=== PATIENT | male | born 1945 | race Caucasian/White ===

== ENCOUNTER → 2020-06-30 12:33 | Outpatient (CLI) | payer MEDICARE, MEDICAID, SELFPAY ==
[2020-06-30] MEDS: COVID-19 VACC, Ad26(JANSSEN)/PF 0.5 ML IM (12:54)
== END ==
PROVIDERS: PCP Physician Assistant; Visit Provider Internal Medicine
DX: Z23 Encounter for immunization (principal)
CPT/HCPCS: 0031A; 91303

== ENCOUNTER 2025-03-28 11:59 | Inpatient (IN) | payer MEDICARE, MEDICAID, SELFPAY ==
[2025-03-28] VITALS (10 sets, daily range): BP systolic 106–145; BP diastolic 66–89; PULSE 62–91; RESP 18–22; TEMP 36.4–37.4; O2SAT 95–99; BMI 18.3
--- NOTE | 2025-03-28 12:30 | EKG_ITS ---
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
--- NOTE | 2025-03-28 12:30 | DI.RAD.S_ITS ---
PROCEDURE: XR CHEST 1V INDICATIONS: Shortness of breath TECHNIQUE: One view of the chest was acquired. COMPARISON: [facility], , CHEST 2 VIEW, 04/09/2017, 9:12. FINDINGS: Surgical changes and devices: None. Lungs and pleura: Lungs are clear. No pleural effusions or pneumothorax. Lungs are hyperexpanded suggestive COPD. Mediastinum: Mediastinal contours appear normal. Heart size is normal. Bones and chest wall: No suspicious bony lesions. Overlying soft tissues appear unremarkable. IMPRESSION: No acute pulmonary process. Dictated by: Gaby Hanson M.D. on 03/28/2025 at 12:54 Approved by: Gaby Hanson M.D. on 03/28/2025 at 12:55
[2025-03-28] MEDS: SODIUM CHLORIDE 0.9% 1,000 ML 1000 ML IV (13:00)
[2025-03-28 13:02] LABS: Add Manual Diff / Slide Review NO; Hematocrit 42.8 % (41-53); Hemoglobin 14.7 g/dL (13.5-17.5); Lymphocytes Absolute Auto 700 /uL (1100-4500); Mean Corpuscular HGB Conc 34.4 % (30-36); Mean Corpuscular Hemoglobin 31.0 PG (26-34); Mean Corpuscular Volume 90.2 fL (80-100); Platelet Count 254 X10^3/uL (150-400)
[2025-03-28 13:09] LABS: INR 1.3 (0.9-1.3); Prothrombin Time 14.2 SECONDS (9.4-12.5)
[2025-03-28 13:12] LABS: COVID-19 CEPHEID 4-PLEX PCR Negative (Negative); Influenza A - CEPHEID Flu A NEGATIVE (NEGATIVE); Influenza B - CEPHEID Flu B NEGATIVE (NEGATIVE)
[2025-03-28 13:14] LABS: Alanine Aminotransferase 21 IU/L (<50); Albumin 4.4 g/dL (3.5-5.0); Albumin Globulin Ratio 1.0 (1.0-2.8); Alkaline Phosphatase 92 U/L (38-126); Blood Urea Nitrogen 37 mg/dL (9-20); Calcium 9.8 mg/dL (8.4-10.2); Carbon Dioxide 17 mmol/L (22-32); Chloride 103 mmol/L (98-107); Estimated Glomerular Filt Rate 38 mL/min (>60); Globulin 4.5 g/dL (1.7-4.1); Glucose 132 mg/dL (70-99); HEMOLYSIS < 15 (0-50); Potassium 4.4 mmol/L (3.4-5.1); Sodium 137 mmol/L (137-145); Total Protein 8.9 g/dL (6.3-8.2)
[2025-03-28 13:15] LABS: Lactate (Lactic Acid) 4.3 mmol/L (0.7-2.1)
[2025-03-28 13:26] LABS: NT-proBNP (BNP-Adult 18+) 1120 pg/mL (<450); Troponin I 0.033 ng/mL (0.01-0.034)
--- NOTE | 2025-03-28 13:56 | ED_ITS ---
HPI - Sepsis General Chief Complaint: Weakness Evaluation Sepsis Screen: No Definite Risk Sepsis Infection Criteria Present: None Exam Initial Vital Signs Initial Vital Signs: Vital Signs Temperature 97.6 F 03/28/25 12:22 Pulse Rate 91 H 03/28/25 12:22 Respiratory Rate 20 03/28/25 12:22 Blood Pressure 106/66 03/28/25 12:22 Pulse Oximetry 99 03/28/25 12:22 Oxygen Delivery Method Room Air 03/28/25 12:22 Course Orders Ordered: ED Orders 03/28/25 12:30 XR chest 1V Stat Covid-19 + FLU A/B + RSV - PCR Stat EKG-12 Lead Stat Measure peak expiratory flow STAT RT Consult Eval and Treat STAT 03/28/25 12:55 Complete Blood Count AUTO DIFF Stat Comprehensive Metabolic Panel Stat Lactate (Lactic Acid) Stat NT-proBNP (BNP-Adult 18+) Stat Prothrombin Time INR Stat Troponin I Stat 03/28/25 13:36 Blood Culture Stat 03/28/25 13:45 Respiratory Panel (Film Array) Stat Urinalysis and Microscopic Stat EKG-12 Lead Stat Venous Blood Gas STAT Sodium Chloride (Normal Saline 0.9%) 1,000 mls @ 1,000 mls/hr IV BOLUS ONE Stop: 03/28/25 14:04 Sodium Chloride (Normal Saline 0.9%) 1,837.05 mls @ 1,224.7 mls/hr 30 ml/kg infuse over 90 min (1837.05 ml) IV NOW ONE Stop: 03/28/25 15:14 Discontinued Medications Piperacillin Sod/Tazobactam (Sod 4.5 gm/ Sodium Chloride) 100 mls @ 200 mls/hr IV STAT ONE Stop: 03/28/25 13:46 Vancomycin HCl (Vancomycin Per Pharmacy) 1 request MISC STAT STA Stop: 03/28/25 13:46 Vital Signs Vital signs: Vital Signs - 8 hr 03/28/25 12:22 03/28/25 12:46 03/28/25 13:00 Temperature 97.6 F Pulse Rate 91 H 82 75 Respiratory Rate 20 22 Blood Pressure 106/66 Pulse Oximetry 99 98 97 Oxygen Delivery Method Room Air Room Air 03/28/25 13:00 Temperature Pulse Rate Respiratory Rate Blood Pressure 124/74 Pulse Oximetry Oxygen Delivery Method Sepsis Evaluation (ED) Triage Screening Sepsis Screen: No Definite Risk Level 1 - Infection Sepsis Infection Criteria Present: None MDM - Sepsis Lab Data 03/28/25 12:55 03/28/25 12:55 Labs: Lab Results 03/28/25 03/28/25 Range/Units 12:30 12:55 WBC 14.9 H (4.5-11.0) X10^3/uL RBC 4.75 (4.5-5.9) X10^6/uL Hgb 14.7 (13.5-17.5) g/dL Hct 42.8 (41-53) % MCV 90.2 (80-100) fL MCH 31.0 (26-34) PG MCHC 34.4 (30-36) % RDW 14.5 (11.6-14.8) % Plt Count 254 (150-400) X10^3/uL Neut % (Auto) 87.7 H (50-75) % Lymph % (Auto) 4.9 L (25-40) % [place] % (Auto) 7.0 (3-14) % Eos % (Auto) 0.0 L (2-4) % Baso % (Auto) 0.4 (0-2) % Neut # (Auto) 28738 H (1611-7322) /uL Lymph # (Auto) 700 L (2555-4872) /uL [place] # (Auto) 1000 H (0-900) /uL Eos # (Auto) 0 (0-450) /uL Baso # (Auto) 100 (0-100) /uL PT 14.2 H (9.4-12.5) SECONDS INR 1.3 (0.9-1.3) Sodium 137 (137-145) mmol/L Potassium 4.4 (3.4-5.1) mmol/L Chloride 103 (98-107) mmol/L Carbon Dioxide 17 L (22-32) mmol/L BUN 37 H (9-20) mg/dL Creatinine 1.79 H (0.66-1.25) mg/dL Estimated GFR 38 L (>60) mL/min BUN/Creatinine Ratio 20.7 (6-22) Glucose 132 H (70-99) mg/dL Lactate 4.3 H* (0.7-2.1) mmol/L Calcium 9.8 (8.4-10.2) mg/dL Total Bilirubin 2.5 H (0.2-1.3) mg/dL AST 28 (17-59) IU/L ALT 21 (<50) IU/L Alkaline Phosphatase 92 (38-126) U/L Troponin I 0.033 (0.01-0.034) ng/mL NT-Pro-B Natriuret Pep 1120 H (<450) pg/mL Total Protein 8.9 H (6.3-8.2) g/dL Albumin 4.4 (3.5-5.0) g/dL Globulin 4.5 H (1.7-4.1) g/dL Albumin/Globulin Ratio 1.0 (1.0-2.8) SARS-CoV-2 (PCR) Negative (Negative) Influenza A (RT-PCR) Flu a negative (NEGATIVE) Influenza B (RT-PCR) Flu b negative (NEGATIVE) RSV (PCR) Negative (Negative) Discharge Plan Departure Prescriptions: No Action erythromycin 5 mg/gram (0.5 %) ointment 1 applictn ophthalmic (eye) TID Qty: 1 0RF ibuprofen 200 MG tablet 400 mg PO PRN PRNQty: 0 Referrals: Lori Rivera PA-C [Primary Care Provider, Medical]
--- NOTE | 2025-03-28 13:58 | ED.WEAKNESS ---
HPI - Weakness General Chief complaint: Weakness Stated complaint: confused, sore throat, shaking, off balance Time Seen by Provider: 03/28/25 13:58 History of Present Illness HPI Narrative: This is a 80-year-old male presents to the emergency room with generalized weakness rigors confusion and lightheadedness that has been going on for the past couple of days. No cough shortness of breath or chest pain no dysuria pyuria or hematuria no abdominal pain. Patient did not take his temperature at home. Upon arrival the patient did have a heart rate that was in the sepsis range however the temperature and respiratory rate were not. Related Data Home Medications ?Medication ?Instructions ?Recorded ?Confirmed ibuprofen 200 mg tablet 400 mg PO PRN PRN ##0 01/04/17 06/18/18 Previous Rx's ?Medication ?Instructions ?Recorded erythromycin 5 mg/gram (0.5 %) eye 1 applictn ophthalmic (eye) TID #1 06/18/18 ointment g Allergies Allergy/AdvReac Type Severity Reaction Status Date / Time No Known Allergies Allergy Uncoded 08/01/17 12:46 Review of Systems Review of Systems Narrative: GENERAL: Denies chills, fatigue, malaise, fever, sweats. HEENT: Denies sinus pain, ear pain, sore throat, difficulty swallowing, dizziness. RESPIRATORY: Denies dyspnea, cough, wheezing, hemoptysis, sputum. CARDIOVASCULAR: Denies chest pain, palpitations, orthopnea, edema, GASTROINTESTINAL: Denies nausea, vomiting, abdominal pain, diarrhea, constipation, melena. : Denies dysuria, frequency, incontinence, hematuria, urinary retention. MUSCULOSKELETAL: denies weakness, joint pain, or bony pain SKIN: Denies rash, skin lesions, or other NEUROLOGIC: Denies weakness, headache, numbness, change in speech, confusion, seizures, incoordination. PSYCHIATRIC: No concerning psychosocial issues. 12 point review of systems is negative except for those stated above Exam Narrative Exam Narrative: GENERAL: [] year old patient appears stated age. Well-developed patient, in mild distress. HEAD: Atraumatic. Normocephalic. EYES: Pupils equal round and reactive. Extraocular motions intact. No scleral icterus. No injection or drainage. ENT: Nose without bleeding, purulent drainage. Throat without erythema, tonsillar hypertrophy or exudate. Airway patent. NECK: Trachea midline. Non tender CARDIOVASCULAR: Regular rate and rhythm without murmurs, gallops, or rubs. RESPIRATORY: Clear to auscultation. Breath sounds equal bilaterally. No wheezes, rales, or rhonchi. GASTROINTESTINAL: Abdomen soft, non-tender, nondistended. EXTREMITIES: No edema or joint tenderness. BACK: Nontender without deformity or crepitance. No flank tenderness. NEURO: AOx3. SKIN: No rash or erythema of visible areas Initial Vital Signs Initial Vital Signs: Vital Signs Temperature 97.6 F 03/28/25 12:22 Pulse Rate 91 H 03/28/25 12:22 Respiratory Rate 20 03/28/25 12:22 Blood Pressure 106/66 03/28/25 12:22 Pulse Oximetry 99 03/28/25 12:22 Oxygen Delivery Method Room Air 03/28/25 12:22 Course Orders Ordered: ED Orders 03/28/25 12:30 XR chest 1V Stat Covid-19 + FLU A/B + RSV - PCR Stat EKG-12 Lead Stat Measure peak expiratory flow STAT RT Consult Eval and Treat STAT 03/28/25 12:55 Complete Blood Count AUTO DIFF Stat Comprehensive Metabolic Panel Stat Lactate (Lactic Acid) Stat NT-proBNP (BNP-Adult 18+) Stat Prothrombin Time INR Stat Troponin I Stat 03/28/25 13:36 Blood Culture Stat 03/28/25 13:45 Respiratory Panel (Film Array) Stat Urinalysis and Microscopic Stat EKG-12 Lead Stat Venous Blood Gas STAT Sodium Chloride (Normal Saline 0.9%) 1,000 mls @ 1,000 mls/hr IV BOLUS ONE Stop: 03/28/25 14:04 Sodium Chloride (Normal Saline 0.9%) 1,837.05 mls @ 1,224.7 mls/hr 30 ml/kg infuse over 90 min (1837.05 ml) IV NOW ONE Stop: 03/28/25 15:14 Discontinued Medications Piperacillin Sod/Tazobactam (Sod 4.5 gm/ Sodium Chloride) 100 mls @ 200 mls/hr IV STAT ONE Stop: 03/28/25 13:46 Vancomycin HCl (Vancomycin Per Pharmacy) 1 request MISC STAT STA Stop: 03/28/25 13:46 Vital Signs Vital signs: Vital Signs - 8 hr 03/28/25 12:22 03/28/25 12:46 03/28/25 13:00 Temperature 97.6 F Pulse Rate 91 H 82 75 Respiratory Rate 20 22 Blood Pressure 106/66 Pulse Oximetry 99 98 97 Oxygen Delivery Method Room Air Room Air 03/28/25 13:00 Temperature Pulse Rate Respiratory Rate Blood Pressure 124/74 Pulse Oximetry Oxygen Delivery Method MDM - Weakness Lab Data 03/28/25 12:55 12 12:55 Labs: Lab Results 03/28/25 03/28/25 Range/Units 12:30 12:55 WBC 14.9 H (4.5-11.0) X10^3/uL RBC 4.75 (4.5-5.9) X10^6/uL Hgb 14.7 (13.5-17.5) g/dL Hct 42.8 (41-53) % MCV 90.2 (80-100) fL MCH 31.0 (26-34) PG MCHC 34.4 (30-36) % RDW 14.5 (11.6-14.8) % Plt Count 254 (150-400) X10^3/uL Neut % (Auto) 87.7 H (50-75) % Lymph % (Auto) 4.9 L (25-40) % [place] % (Auto) 7.0 (3-14) % Eos % (Auto) 0.0 L (2-4) % Baso % (Auto) 0.4 (0-2) % Neut # (Auto) 83259 H (6042-8752) /uL Lymph # (Auto) 700 L (2380-7593) /uL [place] # (Auto) 1000 H (0-900) /uL Eos # (Auto) 0 (0-450) /uL Baso # (Auto) 100 (0-100) /uL PT 14.2 H (9.4-12.5) SECONDS INR 1.3 (0.9-1.3) Sodium 137 (137-145) mmol/L Potassium 4.4 (3.4-5.1) mmol/L Chloride 103 (98-107) mmol/L Carbon Dioxide 17 L (22-32) mmol/L BUN 37 H (9-20) mg/dL Creatinine 1.79 H (0.66-1.25) mg/dL Estimated GFR 38 L (>60) mL/min BUN/Creatinine Ratio 20.7 (6-22) Glucose 132 H (70-99) mg/dL Lactate 4.3 H* (0.7-2.1) mmol/L Calcium 9.8 (8.4-10.2) mg/dL Total Bilirubin 2.5 H (0.2-1.3) mg/dL AST 28 (17-59) IU/L ALT 21 (<50) IU/L Alkaline Phosphatase 92 (38-126) U/L Troponin I 0.033 (0.01-0.034) ng/mL NT-Pro-B Natriuret Pep 1120 H (<450) pg/mL Total Protein 8.9 H (6.3-8.2) g/dL Albumin 4.4 (3.5-5.0) g/dL Globulin 4.5 H (1.7-4.1) g/dL Albumin/Globulin Ratio 1.0 (1.0-2.8) SARS-CoV-2 (PCR) Negative (Negative) Influenza A (RT-PCR) Flu a negative (NEGATIVE) Influenza B (RT-PCR) Flu b negative (NEGATIVE) RSV (PCR) Negative (Negative) MDM Narrative Medical decision making narrative: Patient had 12 lead EKG which revealed sinus rhythm at 74 beats per minute with left bundle branch block patient had chest x-ray read by the radiologist negative flu and COVID were negative CBC was remarkable for a white count 14.9 chemistry was remarkable for an elevated BUN creatinine ratio BNP was elevated at 11 20 troponin was negative at 0.03. Lactic acid was elevated at 4.3 T bilirubin was elevated 2.5. When we get back the WBC patient did meet sepsis criteria and sepsis alert was called. The patient did have a lactic acid greater than 4 so he meets severe sepsis criteria patient was given a bolus of 30 mL/kilograms of normal saline. Patient was also ordered IV vancomycin IV Zosyn. At this point we are still pending the urine and we have no clear source of the etiology of the sepsis. Patient was flu and COVID negative. The patient will need to be admitted for further evaluation and treatment. I I just speak with the hospitalist Dr. Hooker who agreed to admit the patient for observation for further evaluation and treatment. Differential diagnosis is pneumonia sepsis urosepsis. Discharge Plan Departure Patient Disposition: Admitted as Observation Clinical Impression: Sepsis
[2025-03-28 14:09] LABS: Base Excess VBG -2.2 mmol/L (0-4); HCO3 VBG 19 mmol/L (24-28); Oxygen Saturation VBG 47 % (70-75); PCO2 VBG 24.5 mmHg (45-50); PO2 VBG 23 mmHg (35-45); Total CO2 VBG 18 mmol/L (24-29); pH VBG 7.50 (7.33-7.43)
[2025-03-28] MEDS: PIPERACILLIN/TAZO 4.5 GM in SODIUM CHLORIDE 0.9% 100 ML IV (14:10)
[2025-03-28] MEDS: SODIUM CHLORIDE 0.9% 1,837.05 ML 1224.7 ML IV (14:19)
[2025-03-28 14:34] LABS: Reflexed Lactate in 2 Hours Y
--- NOTE | 2025-03-28 14:44 | P.HP_ITS ---
History of Present Illness History of Present Illness Date Patient Seen: 03/28/25 Time Patient Seen: 15:40 Chief complaint: confused, sore throat, shaking, off balance Narrative: ED note: This is a 80-year-old male presents to the emergency room with generalized weakness rigors confusion and lightheadedness that has been going on for the past couple of days. No cough shortness of breath or chest pain no dysuria pyuria or hematuria no abdominal pain. Patient did not take his temperature at home. Upon arrival the patient did have a heart rate that was in the sepsis range however the temperature and respiratory rate were not. S: He has been ill for 2 days with a cough and developed acute dyspnea and anxiety today. He also has had some diarrhea but denies any urinary symptoms such as hematuria or dysuria. He was had no fevers, or chills. Upon arrival in the ED, he had an elevated lactic acid and was given fluid bolus. 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 He denies history of asthma, or COPD. He does not smoke. He also denies abdominal pain, his bilirubin was mildly elevated with normal transaminases. He was not have a headache, or confusion. ROS: All else reviewed and otherwise unremarkable except as noted in the history and physical. O: VSS NAD, alert and oriented, fluent speech, calm. Normocephalic skull, EOMI, anicteric sclera, symmetric pupils. Oropharynx unremarkable, no droop. Neck supple, midline trachea, no adenopathy. Lungs clear, normal rate and effort. Heart regular, no murmur gallop or rub. Abdomen is soft, non distended and non tender. Extremities are free of edema. Skin is free of rash or lesions. Joints are not swollen or deformed. Judgment appears to be normal. IMAGING: CXR: Clear. A/P: 1. Sepsis, active. 2. Long Covid (per patient). Stable. 3. Possible pneumonia. 4. Lactic acidosis, active. PLAN: -continue IV antibiotics (for CAP). -continue IV fluids -monitor cultures Anticipate 1 night in the hospital, supports observation status. Full resuscitation. [facility] Social History household members: none Smoking Status: Current some day smoker alcohol intake: former Meds Home Medications and Allergies Home Medications ?Medication ?Instructions ?Recorded ?Confirmed ?Type ibuprofen 200 mg tablet 400 mg PO PRN PRN ##0 06/18/18 History erythromycin 5 mg/gram (0.5 %) eye 1 applictn ophthalm ic (eye) TID #1 06/18/18 Rx ointment g Allergies Allergy/AdvReac Type Severity Reaction Status Date / Time No Known Drug Allergies Allergy Verified 03/28/25 15:42 Exam Vital Signs (past 8 hours): - 03/28/25 12:22 03/28/25 12:46 03/28/25 13:00 Temperature 97.6 F Pulse Rate 91 H 82 75 Respiratory Rate 20 22 Blood Pressure 106/66 Pulse Oximetry 99 98 97 Oxygen Delivery Method Room Air Room Air 03/28/25 13:00 03/28/25 13:43 03/28/25 13:50 Temperature Pulse Rate 81 Respiratory Rate 20 Blood Pressure 124/74 125/89 Pulse Oximetry 98 Oxygen Delivery Method 03/28/25 13:50 03/28/25 14:00 03/28/25 14:00 Temperature Pulse Rate 85 75 Respiratory Rate 18 19 Blood Pressure 142/72 H Pulse Oximetry 97 98 Oxygen Delivery Method Oxygen Delivery Method Room Air Objective Labs 03/28/25 12:55 03/28/25 12:55 Labs: Laboratory Results - last 24 hr 03/28/25 03/28/25 03/28/25 12:30 12:55 14:07 WBC 14.9 H RBC 4.75 Hgb 14.7 Hct 42.8 MCV 90.2 MCH 31.0 MCHC 34.4 RDW 14.5 Plt Count 254 Neut % (Auto) 87.7 H Lymph % (Auto) 4.9 L [place] % (Auto) 7.0 Eos % (Auto) 0.0 L Baso % (Auto) 0.4 Neut # (Auto) 45944 H Lymph # (Auto) 700 L [place] # (Auto) 1000 H Eos # (Auto) 0 Baso # (Auto) 100 PT 14.2 H INR 1.3 VBG pH 7.50 H VBG pCO2 24.5 L VBG pO2 23 L VBG HCO3 19 L VBG Total CO2 18 L VBG O2 Saturation 47 L VBG Base Excess -2.2 L FiO2 % 21.0 % Sodium 137 Potassium 4.4 Chloride 103 Carbon Dioxide 17 L BUN 37 H Creatinine 1.79 H Estimated GFR 38 L BUN/Creatinine Ratio 20.7 Glucose 132 H Lactate 4.3 H* Calcium 9.8 Total Bilirubin 2.5 H AST 28 ALT 21 Alkaline Phosphatase 92 Troponin I 0.033 NT-Pro-B Natriuret Pep 1120 H Total Protein 8.9 H Albumin 4.4 Globulin 4.5 H Albumin/Globulin Ratio 1.0 SARS-CoV-2 (PCR) Negative Influenza A (RT-PCR) Flu a negative Influenza B (RT-PCR) Flu b negative RSV (PCR) Negative Assessment & Plan Time-Based Coding :: 35 min spent with patient and on the chart (including review of chart, obtaining history, exam, reviewing outside data, placing orders, documenting exam and treatment plan, and counseling patient) on 03/28. Quality MIPS - Admit The patient?s Advance Care plan is not present because I confirmed today that the patient does not wish or was not able to name a surrogate decision maker or provide an Advance Care Plan.: Yes MIPS - Meds 'Current medications' to include all prescriptions, [id number] products, herbals, cannabis/cannabidiol products, and vitamin/mineral/dietary (nutritional) supplements. I have utilized all available resources to obtain, update, or review the patient?s current medications. [If Yes, STOP here]: Yes
[2025-03-28 15:20] LABS: Lactate 2HR (Lactic Acid Rflx) 2.4 mmol/L (0.7-2.1)
[2025-03-28] MEDS: SODIUM CHLORIDE 0.9% 1,000 ML 100 ML IV (17:42)
[2025-03-28] MEDS: PIPERACILLIN/TAZO 3.375 GM in SODIUM CHLORIDE 0.9% 100 ML IV (17:43)
[2025-03-28 18:47] LABS: Lactate (Lactic Acid) 1.3 mmol/L (0.7-2.1)
[2025-03-28 21:05] LABS: Appearance Urine UA CLEAR; Bilirubin Urine UA NEGATIVE (NEGATIVE); Color Urine UA YELLOW; Glucose Urine UA NEGATIVE (Negative); Ketones Urine UA TRACE (NEGATIVE); Leukocyte Esterase Urine UA NEGATIVE (NEGATIVE); Nitrite Urine UA NEGATIVE (Negative); Occult Blood Urine UA TRACE-INTACT (Negative); Protein Urine UA 1+ (Negative); Specific Gravity Urine UA 1.025 (1.000-1.035); Urobilinogen Urine UA 1.0 E.U./dL (0.2); pH Urine UA 5.5 (4.5-8.0)
[2025-03-28 21:10] LABS: Culture Indicated Urine Cult Not Indicated
[2025-03-29] VITALS: BP 118/60; PULSE 69; RESP 16; TEMP 37.1; O2SAT 95
[2025-03-29] MEDS: PIPERACILLIN/TAZO 3.375 GM in SODIUM CHLORIDE 0.9% 100 ML IV ×4 (00:40→22:07)
[2025-03-29 03:10] VITALS: BP 139/78; PULSE 67; RESP 16; TEMP 36.8; O2SAT 96
[2025-03-29 06:11] LABS: Blood Urea Nitrogen 39 mg/dL (9-20); Calcium 8.4 mg/dL (8.4-10.2); Carbon Dioxide 19 mmol/L (22-32); Chloride 110 mmol/L (98-107); Estimated Glomerular Filt Rate 48 mL/min (>60); Glucose 91 mg/dL (70-99); HEMOLYSIS < 15 (0-50); Potassium 4.0 mmol/L (3.4-5.1); Sodium 136 mmol/L (137-145)
[2025-03-29 06:26] LABS: Add Manual Diff / Slide Review NO; Hematocrit 35.9 % (41-53); Hemoglobin 12.3 g/dL (13.5-17.5); Lymphocytes Absolute Auto 1000 /uL (1100-4500); Mean Corpuscular HGB Conc 34.4 % (30-36); Mean Corpuscular Hemoglobin 31.0 PG (26-34); Mean Corpuscular Volume 90.0 fL (80-100); Platelet Count 196 X10^3/uL (150-400)
[2025-03-29 06:56] LABS: Coronavirus NL 63 Not Detected (Not Detect); SARS- CoV-2 Not Detected (Not Detecte)
[2025-03-29] MEDS: SODIUM CHLORIDE 0.9% 1,000 ML 100 ML IV ×2 (08:00→20:49)
[2025-03-29 08:26] VITALS: BP 136/73; PULSE 60; RESP 22; TEMP 37.3; O2SAT 97
[2025-03-29 12:25] VITALS: BP 141/68; PULSE 54; RESP 18; TEMP 37.2; O2SAT 98
--- NOTE | 2025-03-29 15:04 | P.PN_ITS ---
Subjective Subjective Interval history: Summary: ED note: This is a 80-year-old male presents to the emergency room with generalized weakness rigors confusion and lightheadedness that has been going on for the past couple of days. No cough shortness of breath or chest pain no dysuria, pyuria, or hematuria no abdominal pain. Patient did not take his temperature at home. Upon arrival the patient did have a heart rate that was in the sepsis range however the temperature and respiratory rate were not. S: He is feeling better. He denies dyspnea or pain. No nausea. He is still feeling weak. IVF did make him feel better. O: T98.9, BP 141/68, HR 54, RR18. NAD, alert and oriented. Fluent speech. Lungs are clear, normal rate and effort. Heart is regular, no murmur gallop or rub. Abdomen is soft, non distended. Extremities are free of edema. IMAGING: CXR: Clear. A/P: 1. Sepsis, improved. 2. Long Covid (per patient). Stable. 3. Possible pneumonia. Continue Abx. 4. Lactic acidosis, resolved. 5. Weakness. PLAN: -continue IV antibiotics (for CAP). -continue IV fluids -monitor cultures Needs another night in the hospital for IVF and IV Abx. Full resuscitation. LE: 03/30. Exam Vital Signs (past 8 hours): - 03/29/25 08:26 03/29/25 12:25 Temperature 99.1 F 98.9 F Pulse Rate 60 54 L Respiratory Rate 22 18 Blood Pressure 136/73 141/68 H Pulse Oximetry 97 98 Oxygen Flow Rate 0 0 Oxygen Delivery Method Room Air Oxygen Flow Rate 0 Objective Labs 03/29/25 05:40 03/29/25 05:40 Labs: Laboratory Results - last 24 hr 03/28/25 03/28/25 03/28/25 14:48 18:27 20:30 WBC RBC Hgb Hct MCV MCH MCHC RDW Plt Count Neut % (Auto) Lymph % (Auto) [place] % (Auto) Eos % (Auto) Baso % (Auto) Neut # (Auto) Lymph # (Auto) [place] # (Auto) Eos # (Auto) Baso # (Auto) Sodium Potassium Chloride Carbon Dioxide BUN Creatinine Estimated GFR BUN/Creatinine Ratio Glucose Lactate 2.4 H 1.3 Calcium Urine Color Yellow Urine Appearance Clear Urine pH 5.5 Ur Specific [place] 1.025 Urine Protein 1+ H Urine Glucose (UA) Negative Urine Ketones Trace H Urine Occult Blood Trace-intact Urine Nitrate Negative Urine Bilirubin Negative Urine Urobilinogen 1.0 Ur Leukocyte Esterase Negative Urine RBC 0-1/hpf Urine WBC 0-1/hpf Ur Squamous Epith Cells None seen Urine Bacteria None seen Ur Culture Indicated? Cult not indicated Vol Urine Centrifuged 10ml (spun) Chlamy pneumoniae PCR Adenovirus (PCR) B. pertussis DNA (PCR) B.parapertussis DNA PCR Coronavirus OC43 (PCR) Coronavirus HKU1 (PCR) Coronavirus 229E (PCR) SARS-CoV-2 (PCR) Coronavirus NL63 (PCR) Human Metapneumovir PCR Influenza Type A (PCR) Influenza Type B (PCR) M. pneumoniae (PCR) Parainfluenza 1 (PCR) Parainfluenza 2 (PCR) Parainfluenza 3 (PCR) Parainfluenza 4 (PCR) RSV (PCR) Entero/Rhino (PCR) 03/29/25 03/29/25 05:30 05:40 WBC 8.0 RBC 3.98 L Hgb 12.3 L Hct 35.9 L MCV 90.0 MCH 31.0 MCHC 34.4 RDW 14.1 Plt Count 196 Neut % (Auto) 77.0 H Lymph % (Auto) 12.6 L [place] % (Auto) 8.6 Eos % (Auto) 1.1 L Baso % (Auto) 0.7 Neut # (Auto) 6200 Lymph # (Auto) 1000 L [place] # (Auto) 700 Eos # (Auto) 100 Baso # (Auto) 100 Sodium 136 L Potassium 4.0 Chloride 110 H Carbon Dioxide 19 L BUN 39 H Creatinine 1.49 H Estimated GFR 48 L BUN/Creatinine Ratio 26.2 H Glucose 91 Lactate Calcium 8.4 Urine Color Urine Appearance Urine pH Ur Specific [place] Urine Protein Urine Glucose (UA) Urine Ketones Urine Occult Blood Urine Nitrate Urine Bilirubin Urine Urobilinogen Ur Leukocyte Esterase Urine RBC Urine WBC Ur Squamous Epith Cells Urine Bacteria Ur Culture Indicated? Vol Urine Centrifuged Chlamy pneumoniae PCR Not detected Adenovirus (PCR) Not detected B. pertussis DNA (PCR) Not detected B.parapertussis DNA PCR Not detected Coronavirus OC43 (PCR) Not detected Coronavirus HKU1 (PCR) Not detected Coronavirus 229E (PCR) Not detected SARS-CoV-2 (PCR) Not detected Coronavirus NL63 (PCR) Not detected Human Metapneumovir PCR Not detected Influenza Type A (PCR) Not detected Influenza Type B (PCR) Not detected M. pneumoniae (PCR) Not detected Parainfluenza 1 (PCR) Not detected Parainfluenza 2 (PCR) Not detected Parainfluenza 3 (PCR) Not detected Parainfluenza 4 (PCR) Not detected RSV (PCR) Not detected Entero/Rhino (PCR) Not detected PFSH Social History household members: none Smoking Status: Current some day smoker alcohol intake: former Assessment & Plan Time-Based Coding :: [TOTAL MINUTES] spent with patient and on the chart (including review of chart, obtaining history, exam, reviewing outside data, placing orders, documenting exam and treatment plan, and counseling patient) on [DATE].
[2025-03-29 16:40] VITALS: BP 141/80; PULSE 64; RESP 20; TEMP 36.5; O2SAT 93
[2025-03-29 20:00] VITALS: BP 122/67; PULSE 62; RESP 20; TEMP 36.9; O2SAT 95
[2025-03-30] VITALS: BP 115/60; PULSE 68; RESP 16; TEMP 36.6; O2SAT 96
[2025-03-30 04:00] VITALS: BP 124/59; PULSE 80; RESP 16; TEMP 36.1; O2SAT 100
[2025-03-30 08:00] VITALS: BP 133/72; PULSE 56; RESP 19; TEMP 36.6; O2SAT 100
[2025-03-30] MEDS: PIPERACILLIN/TAZO 3.375 GM in SODIUM CHLORIDE 0.9% 100 ML IV (08:30)
[2025-03-30] MEDS: SODIUM CHLORIDE 0.9% 1,000 ML 100 ML IV (10:55)
--- NOTE | 2025-03-30 11:39 | PM.DS.1 ---
History of Present Illness History of Present Illness Chief complaint: confused, sore throat, shaking, off balance Narrative: ED note: This is a 80-year-old male presents to the emergency room with generalized weakness rigors confusion and lightheadedness that has been going on for the past couple of days. No cough shortness of breath or chest pain no dysuria pyuria or hematuria no abdominal pain. Patient did not take his temperature at home. Upon arrival the patient did have a heart rate that was in the sepsis range however the temperature and respiratory rate were not. S: He has been ill for 2 days with a cough and developed acute dyspnea and anxiety today. He also has had some diarrhea but denies any urinary symptoms such as hematuria or dysuria. He was had no fevers, or chills. Upon arrival in the ED, he had an elevated lactic acid and was given fluid bolus. 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 He denies history of asthma, or COPD. He does not smoke. He also denies abdominal pain, his bilirubin was mildly elevated with normal transaminases. He was not have a headache, or confusion. ROS: All else reviewed and otherwise unremarkable except as noted in the history and physical. O: VSS NAD, alert and oriented, fluent speech, calm. Normocephalic skull, EOMI, anicteric sclera, symmetric pupils. Oropharynx unremarkable, no droop. Neck supple, midline trachea, no adenopathy. Lungs clear, normal rate and effort. Heart regular, no murmur gallop or rub. Abdomen is soft, non distended and non tender. Extremities are free of edema. Skin is free of rash or lesions. Joints are not swollen or deformed. Judgment appears to be normal. IMAGING: CXR: Clear. A/P: 1. Sepsis, active. 2. Long Covid (per patient). Stable. 3. Possible pneumonia. 4. Lactic acidosis, active. PLAN: -continue IV antibiotics (for CAP). -continue IV fluids -monitor cultures Anticipate 1 night in the hospital, supports observation status. Full resuscitation. Discharge Providers Provider Date of admission: 03/29/25 15:37 Discharge Date: 03/30/25 Primary care physician: Lori Rivera PA-C Consults: None. Discharge provider: Paulo Hooker MD Summary Hospital Course Discharge Diagnosis: 1. Sepsis, improved. 2. Long Covid (per patient). Stable. 3. Possible pneumonia. Continue Abx. 4. Lactic acidosis, resolved. 5. Weakness. 6. Mild initial elevation of bilirubin, resolved on final labs. 7. JO ANN with creatinine 1.79, improved to 1.11 with fluid resuscitation. Hospital Course: He was fluid resuscitated and treated with empiric antibiotics. Blood cultures remained negative. Procalcitonin was elevated. Imaging was unremarkable. He had no focal symptoms but had resolution of fatigue and initial dyspnea. He was felt to be stable for discharge on 5 more days of empiric Levaquin. He will follow up with his PCP within a short time of 5-7 days or return to ER if he was further difficulties. [N], the patient has documentation of a left ventricle ejection fracture less than or equal to 40%, or moderately or severely reduced left ventricle systolic function. [N], the patient has a history of heart transplant or left ventricular assist device (LVAD). [N], the patient was prescribed an ZHENG inhibitor at discharge or is already being taken. The patient was not prescribed an ZHENG-inhibitor because of the following exception: NA. [N], the patient was prescribed Metoprolol succinate, bisoprolol, or carvedilol at discharge. The patient was not prescribed Metoprolol succinate, bisoprolol, or carvedilol at discharge because of the following exception: NA. Status at Discharge Cognitive/behavioral status at discharge: oriented Functional status at discharge: independent ambulation Overall status at discharge: patient is back to baseline Time Spent with Patient Time spent: Greater than 30 minutes Exam Vital Signs (past 8 hours): - 03/30/25 04:00 03/30/25 08:00 Temperature 97 F L 97.9 F Pulse Rate 80 56 L Respiratory Rate 16 19 Blood Pressure 124/59 L 133/72 Pulse Oximetry 100 100 Oxygen Flow Rate 0 Oxygen Delivery Method Room Air Oxygen Flow Rate 0 Narrative Exam Narrative: NAD, alert and oriented. Fluent speech. Lungs are clear, normal rate and effort. Heart is regular, no murmur gallop or rub. Abdomen is soft, non distended. Extremities are free of edema. Objective ECG Impression: ntervals Everson Rate: 74 P: 89 WV: 266 QRS: -84 QRSD: 134 T: 92 QT: 440 QTc: 488 Interpretive Statements Sinus rhythm with 1st degree AV block Left atrial enlargement Left axis deviation Left ventricular hypertrophy with QRS widening ( Frederick product ) Possible Lateral infarct , age undetermined Inferior infarct , age undetermined Labs 03/30/25 11:57 03/30/25 11:57 [facility] Social History household members: none Smoking Status: Current some day smoker alcohol intake: former Discharge Assessment & Plan Assessment and Plan Assessment: 1. Sepsis, improved. 2. Long Covid (per patient). Stable. 3. Possible pneumonia. Continue Abx. 4. Lactic acidosis, resolved. 5. Weakness. 6. Mild initial elevation of bilirubin, resolved on final labs. 7. JO ANN with creatinine 1.79, improved to 1.11 with fluid resuscitation. Plan of Treatment: Stable for discharge with 5 additional days of Levaquin 750 p.o. daily. Close follow up with PCP. Discharge Plan Discharge Plan Patient Disposition: Home Provider Discharge Comment: Stable for discharge, oral antibiotics for 5 additional days. Discharge orders & Medications Prescriptions: New levofloxacin 750 mg tablet 750 mg PO DAILY Qty: 5 0RF Continued erythromycin 5 mg/gram (0.5 %) ointment 1 applictn ophthalmic (eye) TID Qty: 1 0RF ibuprofen 200 MG tablet 400 mg PO PRN PRNQty: 0 Follow up/Referrals: Lori Rivera PAAlexandroC [Primary Care Provider, Medical] Diet/Activity/Treatments Diet: Regular Skin/Wound/Dressing Care Report to your healthcare provider any signs of infection, such as:: chills, fever, night sweats, increased pain and unusual redness Visit Report/Discharge Packet Instructions: DI for Sepsis -- Adult, Levofloxacin Stand Alone Forms: Patient Portal/API Discharge Data Primary Care Provider: Lori Rivera
[2025-03-30 12:14] LABS: Hematocrit 36.4 % (41-53); Hemoglobin 12.5 g/dL (13.5-17.5); Mean Corpuscular HGB Conc 34.3 % (30-36); Mean Corpuscular Hemoglobin 30.9 PG (26-34); Mean Corpuscular Volume 90.1 fL (80-100); Platelet Count 227 X10^3/uL (150-400)
[2025-03-30 12:20] LABS: Alanine Aminotransferase 21 IU/L (<50); Albumin 3.5 g/dL (3.5-5.0); Albumin Globulin Ratio 1.0 (1.0-2.8); Alkaline Phosphatase 62 U/L (38-126); Globulin 3.6 g/dL (1.7-4.1); HEMOLYSIS < 15 (0-50); Total Protein 7.1 g/dL (6.3-8.2)
[2025-03-30 12:21] LABS: Alanine Aminotransferase 21 IU/L (<50); Albumin 3.2 g/dL (3.5-5.0); Albumin Globulin Ratio 0.9 (1.0-2.8); Alkaline Phosphatase 63 U/L (38-126); Blood Urea Nitrogen 24 mg/dL (9-20); Calcium 8.5 mg/dL (8.4-10.2); Carbon Dioxide 21 mmol/L (22-32); Chloride 109 mmol/L (98-107); Estimated Glomerular Filt Rate > 60 mL/min (>60); Globulin 3.4 g/dL (1.7-4.1); Glucose 149 mg/dL (70-99); HEMOLYSIS < 15 (0-50); Potassium 3.5 mmol/L (3.4-5.1); Sodium 138 mmol/L (137-145); Total Protein 6.6 g/dL (6.3-8.2)
--- NOTE | 2025-03-30 15:32 | CM.DANOTE ---
dcp assessment note pt is a 80yo M here with sepsis. 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 indep at baseline. does well in rv/mobile home does not drive it much or drive. normally has access to all basic needs at home. concerned about getting home before dark in order to change his hot water/propane tank? concerned about his ability to crawl under mobile home today. reports no one is physically able to help him or transport him home. took cab here spent last $20 on cab here. agreeable to [facility] ref, pref for taxi voucher home if possible. Business Intelligence Developer Earline ALVARES approved taxi voucher, this evaporative cooler installer completed form. forwarded to accounts payable evaporative cooler installer called [employer] [facility], KINDLY agreed to try and help pt move his hot water tanks today evaporative cooler installer called [facility] [employer] P: dc today with OP f/u, [employer] [employer], and [facility] will cont to follow as needed in case any needs arise Elizabeth ALVARES Discharge Planning/Care Management CM Discharge Assessment Start: 03/28/25 14:27 Freq: Status: Discharge Protocol: Document 03/30/25 15:30 SL (Rec: 03/30/25 15:32 SL andre) Discharge Planning Assessment Assigned Discharge GIORGIO Johnson Game Room Attendant Provider Lori Rivera Insurance Medicaid,Medicare Advance Directives? No History Provided By Patient Prior Living RV Arrangements Household Members none Type of Relies on Others transporation used prior to admit Independent with ADL Yes 's Is patient alert and Yes oriented? 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
== END 2025-03-30 12:30 | disposition home or self-care (01) | DRG 871 ==
LOC: ED 14:11 → AC 14:12
PROVIDERS: Internal Medicine; Admitting Provider Hospitalist; Emergency Provider Emergency Medicine; PCP Physician Assistant; Referring Provider Emergency Medicine; Visit Provider Hospitalist
DX: A41.9 Sepsis, unspecified organism (principal); J18.9 Pneumonia, unspecified organism; E87.20 Acidosis, unspecified; R53.1 Weakness; Z86.16 Personal history of COVID-19; Z87.891 Personal history of nicotine dependence
CPT/HCPCS: 36415; 71045; 80048; 80053; 80076; 81001; 82805; 83605; 83880; 84484; 85025; 85027; 85610; 87040; 87633; 87637; 93005; 96361; 96365; 99284; G0378; J2543; J7030; J7050